=== PATIENT | female | born 1970 | race Two or more races ===

== ENCOUNTER 2018-02-18 12:22 | Inpatient (IN) | payer MEDICARE, OTHER ==
[~2018-02-18] VITALS: Ht 152.4 cm; Wt 87.3 kg
[2018-02-18] MEDS ORDERED: ACET325C5 PO (12:49)
[2018-02-18] MEDS ORDERED: HYDR-3240 PO (12:49)
[2018-02-18] MEDS ORDERED: SODIUM CHLORIDE 0.9% 1,000ML IVBOLUS ONE (13:00)
[2018-02-18] MEDS ORDERED: SODIUM CHLORIDE FLUSH 10ML SYR IVF ONE (13:00)
[2018-02-18 13:21] LABS: BASOPHILS # (AUTO) 0.03 x10^3/uL (0-0.1); BASOPHILS % (AUTO) 0 % (0-1); EOSINOPHILS # (AUTO) 0.08 x10^3/uL (0-0.4); EOSINOPHILS % (AUTO) 1 % (1-7); LYMPHOCYTES # (AUTO) 1.72 x10^3/uL (1-3.4); LYMPHOCYTES % (AUTO) 22 % (22-44); MD NO; MEAN CORPUSCULAR HEMOGLOBIN 29.4 pg (27.0-34.8); MEAN CORPUSCULAR HGB CONC 33.9 g/dL (32.4-35.8); MEAN CORPUSCULAR VOLUME 86.6 fL (80-100); MEAN PLATELET VOLUME 7.7 fL (7.4-10.4); MONOCYTES # (AUTO) 0.56 x10^3/uL (0.2-0.8); MONOCYTES % (AUTO) 7 % (2-9); NEUTROPHILS # (AUTO) 5.47 x10^3/uL (1.8-6.8); NEUTROPHILS % (AUTO) 70 % (42-75); PLATELET COUNT 291 x10^3/uL (130-400); RED BLOOD COUNT 4.84 x10^6/uL (3.82-5.3); RED CELL DISTRIBUTION WIDTH 13.9 % (9.6-15.2)
[2018-02-18 13:30] LABS: INTERNATIONAL NORMALIZED RATIO 0.99 (0.93-1.1); PROTHROMBIN TIME 10.3 Seconds (9.6-11.5)
[2018-02-18 13:32] LABS: ALBUMIN 3.7 g/dL (3.4-5.0); ANION GAP 10 mmol/L (5-15); CALCIUM 8.6 mg/dL (8.5-10.1); CHLORIDE 108 mmol/L (98-107); CREATININE 0.75 mg/dL (0.55-1.02)
[2018-02-18] MEDS ORDERED: ASPIRIN 325 MG TABLET PO STA (14:11)
[2018-02-18] MEDS ORDERED: ASPIRIN 325 MG TABLET ONE (14:25)
[2018-02-18] MEDS ORDERED: BISACODYL 10 MG SUPP PR PRN (15:00)
[2018-02-18] MEDS ORDERED: POLYETHYLENE GLYCOL 17 GM PACKET PO PRN (15:00)
[2018-02-18] MEDS ORDERED: ONDANSETRON 2MG/ML, 2ML IVPush PRN (15:00)
[2018-02-18] MEDS ORDERED: ENALAPRILAT 1.25 MG/ML, 2ML IV PRN (15:00)
[2018-02-18] MEDS ORDERED: DOCUSATE 100 MG CAPSULE PO PRN (15:00)
[2018-02-18] MEDS ORDERED: LABETALOL 5MG/ML, 20ML IVPush PRN (15:00)
[2018-02-18 16:48] VITALS: BP 129/87
[2018-02-18] MEDS: ACETAMINOPHEN 650 MG/20.3 ML UDC PO PRN ×2 (17:14→21:18)
[2018-02-18 19:25] VITALS: BP 129/88
[2018-02-18] MEDS: ATORVASTATIN 80 MG TABLET PO SCH (21:18)
[2018-02-18 22:19] VITALS: BP 146/95
[2018-02-18] MEDS ORDERED: ONDANSETRON 4 MG TABLET ONE (22:27)
[2018-02-18] MEDS: HYDROcodone/APAP 5/325 TABLET PO PRN (23:13)
[2018-02-19] VITALS (9 sets, daily range): BP systolic 106–156; BP diastolic 66–96
[2018-02-19] MEDS: HYDROcodone/APAP 5/325 TABLET PO PRN ×3 (05:13→20:16)
[2018-02-19 05:32] LABS: CHOL/HDL RATIO 3.6; LDL/HDL RATIO 1.6 (0.5-3.0)
[2018-02-19] MEDS: ASPIRIN 81 MG TABLET CHEW PO/NG SCH (08:37)
[2018-02-19] MEDS: ATORVASTATIN 80 MG TABLET PO SCH (20:16)
[2018-02-20] MEDS: HYDROcodone/APAP 5/325 TABLET PO PRN ×2 (01:37→08:01)
[2018-02-20 01:38] VITALS: BP 113/80
[2018-02-20 07:42] VITALS: BP 145/92
[2018-02-20] MEDS: ASPIRIN 81 MG TABLET CHEW PO/NG SCH (08:01)
[2018-02-20 10:25] VITALS: BP 129/87
[2018-02-20] MEDS ORDERED: ASPI-515 PO/NG (10:50)
[2018-02-20] MEDS ORDERED: SUMA50TA4 PO (10:50)
[2018-02-20] MEDS ORDERED: LISI-167 PO (10:50)
[2018-02-20] MEDS ORDERED: ATOR-2 PO (10:50)
[2018-02-20] MEDS ORDERED: SUMATRIPTAN 50 MG TABLET PO PRN (11:00)
[2018-02-20] MEDS ORDERED: LISINOPRIL 10 MG TABLET PO SCH (11:00)
[2018-02-20] MEDS ORDERED: DIPHENHYDRAMINE 25 MG CAPSULE PO ONE (14:00)
[2018-02-20 14:18] VITALS: BP 122/82
== END 2018-02-20 17:00 | disposition home or self-care (01) | DRG 69 ==
LOC: ED 14:03 → EDIP 14:09 → 4EST 16:24
PROVIDERS: ADMIT Internal Medicine; ATTEND Internal Medicine
DX: G45.9 Transient cerebral ischemic attack, unspecified (principal); E66.9 Obesity, unspecified; G43.909 Migraine, unspecified, not intractable, without status migrainosus; I10 Essential (primary) hypertension; K21.9 Gastro-esophageal reflux disease without esophagitis; Z91.19 Patient's noncompliance with other medical treatment and regimen; Z83.3 Family history of diabetes mellitus; Z79.82 Long term (current) use of aspirin; Z79.899 Other long term (current) drug therapy; Z90.49 Acquired absence of other specified parts of digestive tract; Z98.51 Tubal ligation status; Z68.37 Body mass index [BMI] 37.0-37.9, adult
CPT/HCPCS: 36415; 70450; 70551; 80048; 80061; 82040; 85025; 85610; 85730; 93005; 93306; 93880; 96360; J2405; J7030; Q0163